=== PATIENT | female | born 1980 | race Caucasian/White ===

== ENCOUNTER 2019-03-27 16:52 | Inpatient (IN) | payer OTHER ==
[~2019-03-27] VITALS: Ht 154.9 cm; Wt 89.9 kg
[~2019-03-27 16:52] MED LIST: IBUP-1223 PO; LABE200T6 PO; LEVO25TA4 PO; OXYC-302 PO
[2019-03-27 17:32] VITALS: BP 167/89
[2019-03-27 17:35] LABS: MICROSCOPIC NOT IND
[2019-03-27 18:03] LABS: BASOPHILS # (AUTO) 0.04 x10^3/uL (0-0.1); BASOPHILS % (AUTO) 1 % (0-1); EOSINOPHILS # (AUTO) 0.16 x10^3/uL (0-0.4); EOSINOPHILS % (AUTO) 2 % (1-7); LYMPHOCYTES # (AUTO) 2.15 x10^3/uL (1-3.4); LYMPHOCYTES % (AUTO) 24 % (22-44); MD NO; MEAN CORPUSCULAR HEMOGLOBIN 30.8 pg (27.0-34.8); MEAN CORPUSCULAR HGB CONC 33.2 g/dL (32.4-35.8); MEAN CORPUSCULAR VOLUME 92.6 fL (80-100); MONOCYTES # (AUTO) 0.65 x10^3/uL (0.2-0.8); MONOCYTES % (AUTO) 7 % (2-9); NEUTROPHILS # (AUTO) 5.83 x10^3/uL (1.8-6.8); NEUTROPHILS % (AUTO) 66 % (42-75); PLATELET COUNT 223 x10^3/uL (130-400); RED BLOOD COUNT 4.45 x10^6/uL (3.82-5.3); RED CELL DISTRIBUTION WIDTH 14.3 % (9.6-15.2)
[2019-03-27 18:07] LABS: ALBUMIN 2.8 g/dL (3.4-5.0); ANION GAP 7 mmol/L (5-15); CALCIUM 9.5 mg/dL (8.5-10.1); CHLORIDE 109 mmol/L (98-107)
[2019-03-27 18:15] LABS: ALANINE AMINOTRANSFERASE 26 U/L (12-78); ALKALINE PHOSPHATASE 123 U/L (45-117); BILIRUBIN,TOTAL 0.4 mg/dL (0.2-1.0); CREATININE 0.97 mg/dL (0.55-1.02); TOTAL PROTEIN 7.4 g/dL (6.4-8.2)
[2019-03-27] MEDS ORDERED: BETAMETHASONE 6 MG/ML, 5ML IM ONE (20:06)
[2019-03-27] MEDS: BETAMETHASONE 6 MG/ML, 5ML IM SCH (20:12)
[2019-03-27] MEDS ORDERED: LABETALOL 200 MG TABLET ONE (22:02)
[2019-03-27] MEDS ORDERED: ASPIRIN 81 MG TABLET CHEW ONE (22:11)
[2019-03-27] MEDS: ASPIRIN 81 MG TABLET CHEW PO SCH (22:15)
[2019-03-27] MEDS: LABETALOL 200 MG TABLET PO SCH (22:16)
[2019-03-28 04:43] LABS: BASOPHILS # (AUTO) 0.01 x10^3/uL (0-0.1); BASOPHILS % (AUTO) 0 % (0-1); EOSINOPHILS % (AUTO) 0 % (1-7); LYMPHOCYTES # (AUTO) 1.33 x10^3/uL (1-3.4); LYMPHOCYTES % (AUTO) 15 % (22-44); MD NO; MEAN CORPUSCULAR HEMOGLOBIN 30.5 pg (27.0-34.8); MEAN CORPUSCULAR VOLUME 92.6 fL (80-100); MEAN PLATELET VOLUME 8.9 fL (7.4-10.4); MONOCYTES # (AUTO) 0.07 x10^3/uL (0.2-0.8); MONOCYTES % (AUTO) 1 % (2-9); NEUTROPHILS # (AUTO) 7.59 x10^3/uL (1.8-6.8); NEUTROPHILS % (AUTO) 84 % (42-75); PLATELET COUNT 216 x10^3/uL (130-400); RED BLOOD COUNT 4.56 x10^6/uL (3.82-5.3); RED CELL DISTRIBUTION WIDTH 14.2 % (9.6-15.2)
[2019-03-28 04:49] LABS: ALANINE AMINOTRANSFERASE 25 U/L (12-78); ALBUMIN 2.7 g/dL (3.4-5.0); ANION GAP 8 mmol/L (5-15); BILIRUBIN, DIRECT 0.1 mg/dL (0.1-0.2); CALCIUM 9.1 mg/dL (8.5-10.1); CHLORIDE 106 mmol/L (98-107); CREATININE 0.96 mg/dL (0.55-1.02)
[2019-03-28 04:51] LABS: ALKALINE PHOSPHATASE 120 U/L (45-117); BILIRUBIN,TOTAL 0.4 mg/dL (0.2-1.0); TOTAL PROTEIN 7.3 g/dL (6.4-8.2)
[2019-03-28] MEDS ORDERED: LABETALOL 200 MG TABLET ONE ×2 (07:39→19:59)
[2019-03-28] MEDS: LABETALOL 200 MG TABLET PO SCH ×2 (07:45→20:04)
[2019-03-28] MEDS: LEVOTHYROXINE 100 MCG TABLET PO SCH (08:31)
[2019-03-28] MEDS ORDERED: ASPIRIN 81 MG TABLET CHEW ONE (19:59)
[2019-03-28] MEDS: BETAMETHASONE 6 MG/ML, 5ML IM SCH (20:04)
[2019-03-28] MEDS: ASPIRIN 81 MG TABLET CHEW PO SCH (20:04)
[2019-03-29] MEDS ORDERED: LABETALOL 200 MG TABLET ONE (07:14)
[2019-03-29] MEDS: LABETALOL 200 MG TABLET PO SCH ×2 (07:20→18:00)
[2019-03-29] MEDS: LEVOTHYROXINE 100 MCG TABLET PO SCH (07:20)
[2019-03-29] MEDS ORDERED: ONDANSETRON 2MG/ML, 2ML IVPush ONE (09:00)
[2019-03-29] MEDS ORDERED: MAGNESIUM SULFATE PMX 2GM/50ML 50 ML IVPB ONE (09:00)
[2019-03-29] MEDS ORDERED: MAGNESIUM SULFATE PMX 4GM/100M 100 ML IVPB ONE ×2 (09:00)
[2019-03-29] MEDS ORDERED: hydrALAzine 20 MG/ML, 1ML IVPush ONE ×4 (09:00)
[2019-03-29] MEDS ORDERED: LABETALOL 5MG/ML 40ML VIAL IVPush ONE (09:00)
[2019-03-29] MEDS ORDERED: LACTATED RINGERS 1,000 ML IVBOLUS ONE (09:00)
[2019-03-29] MEDS ORDERED: CEFAZOLIN PMX 1GM/50ML 50 ML IVPB ONE (09:00)
[2019-03-29] MEDS ORDERED: MAGNESIUM SULFATE PMX 4GM/100M 100 ML ONE (09:05)
[2019-03-29] MEDS ORDERED: hydrALAzine 20 MG/ML, 1ML ONE ×2 (09:06→15:35)
[2019-03-29] MEDS ORDERED: MAGNESIUM SULF. PMX 20GM/500ML 500 ML IV ONE ×2 (09:06→20:10)
[2019-03-29 09:34] LABS: BASOPHILS # (AUTO) 0.04 x10^3/uL (0-0.1); BASOPHILS % (AUTO) 0 % (0-1); EOSINOPHILS # (AUTO) 0.01 x10^3/uL (0-0.4); EOSINOPHILS % (AUTO) 0 % (1-7); LYMPHOCYTES # (AUTO) 1.46 x10^3/uL (1-3.4); LYMPHOCYTES % (AUTO) 13 % (22-44); MD NO; MEAN CORPUSCULAR HEMOGLOBIN 30.5 pg (27.0-34.8); MEAN CORPUSCULAR HGB CONC 33.4 g/dL (32.4-35.8); MEAN CORPUSCULAR VOLUME 91.3 fL (80-100); MEAN PLATELET VOLUME 8.6 fL (7.4-10.4); MONOCYTES % (AUTO) 4 % (2-9); NEUTROPHILS % (AUTO) 83 % (42-75); PLATELET COUNT 228 x10^3/uL (130-400); RED BLOOD COUNT 4.58 x10^6/uL (3.82-5.3); RED CELL DISTRIBUTION WIDTH 14.1 % (9.6-15.2)
[2019-03-29 09:40] LABS: ALANINE AMINOTRANSFERASE 25 U/L (12-78); ALBUMIN 2.9 g/dL (3.4-5.0); ANION GAP 12 mmol/L (5-15); CALCIUM 9.3 mg/dL (8.5-10.1); CHLORIDE 106 mmol/L (98-107); CREATININE 0.98 mg/dL (0.55-1.02)
[2019-03-29 09:42] LABS: ALKALINE PHOSPHATASE 130 U/L (45-117); BILIRUBIN,TOTAL 0.2 mg/dL (0.2-1.0); TOTAL PROTEIN 7.6 g/dL (6.4-8.2)
[2019-03-29] MEDS ORDERED: LACTATED RINGERS 1,000 ML IV SCH (10:00)
[2019-03-29] MEDS: MAGNESIUM SULF. PMX 20GM/500ML 500 ML IV SCH ×2 (10:06→20:19)
[2019-03-29] MEDS ORDERED: ACETAMINOPHEN 325 MG TABLET PO PRN (15:00)
[2019-03-29] MEDS ORDERED: ACETAMINOPHEN 325 MG TABLET ONE (15:02)
[2019-03-29 15:11] VITALS: BP 142/71
[2019-03-29] MEDS ORDERED: NEWBORN KIT ONE (16:27)
[2019-03-29] MEDS ORDERED: METOCLOPRAMIDE 5 MG/ML, 2ML ONE (17:19)
[2019-03-29] MEDS ORDERED: SODIUM CITRATE/CITRIC ACID 30 ML UDC ONE (17:20)
[2019-03-29] MEDS ORDERED: OXYTOCIN 30U/ 0.9% NaCL 500ML 500 ML ONE (17:20)
[2019-03-29] MEDS ORDERED: morphine SULFATE/PF 0.5 MG/ML, 10ML ONE (17:43)
[2019-03-29] MEDS ORDERED: SODIUM CITRATE/CITRIC ACID 30 ML UDC PO ONE (18:00)
[2019-03-29] MEDS ORDERED: METOCLOPRAMIDE 5 MG/ML, 2ML IV ONE (18:00)
[2019-03-29] MEDS ORDERED: CEFAZOLIN 1,000 MG ONE (18:22)
[2019-03-29] MEDS ORDERED: EPHEDRINE 50 MG/ML, 1ML ONE (18:22)
[2019-03-29] MEDS ORDERED: EPINEPHRINE 1 MG/ML, 1ML ONE (18:22)
[2019-03-29] MEDS ORDERED: WATER-INJECTION,STERILE 10 ML IV ONE (18:22)
[2019-03-29] MEDS ORDERED: OXYTOCIN 10 UNITS/ML, 1ML ONE (18:22)
[2019-03-29] MEDS ORDERED: PHENYLEPHRINE 10 MG/ML ONE (18:22)
[2019-03-29] MEDS ORDERED: ONDANSETRON 2MG/ML, 2ML ONE (18:22)
[2019-03-29] MEDS: LACTATED RINGERS 1,000 ML IV SCH ×2 (19:25→20:17)
[2019-03-29] MEDS ORDERED: MISOPROSTOL 200 MCG TABLET PR PRN (19:30)
[2019-03-29] MEDS ORDERED: morphine SULFATE 10 MG/ML, 1ML IVPush PRN (19:30)
[2019-03-29] MEDS ORDERED: CARBOPROST TROMETHAMINE 250 MCG/ML, 1ML IM PRN (19:30)
[2019-03-29] MEDS ORDERED: TRANEXAMIC ACID 100 MG/ML, 10ML IV ONE (19:30)
[2019-03-29] MEDS ORDERED: OXYcodone IR 5MG TABLET PO PRN ×2 (19:30)
[2019-03-29] MEDS ORDERED: ONDANSETRON 2MG/ML, 2ML IV PRN (19:30)
[2019-03-29] MEDS: ASPIRIN 81 MG TABLET CHEW PO SCH (20:00)
[2019-03-29] MEDS: OXYTOCIN 30U/ 0.9% NaCL 500ML 500 ML IV SCH (20:18)
[2019-03-29] MEDS ORDERED: DIPHENHYDRAMINE 50 MG/ML, 1ML IVPush PRN (21:30)
[2019-03-29] MEDS ORDERED: OXYcodone/APAP 5/325MG TABLET PO PRN (21:30)
[2019-03-29] MEDS ORDERED: ONDANSETRON 2MG/ML, 2ML IVPush PRN (21:30)
[2019-03-29] MEDS ORDERED: HYDROmorphone/PF 10 MG/ML, 1ML IVPush PRN (21:30)
[2019-03-29] MEDS ORDERED: NALOXONE 0.4 MG/ML, 1ML IVPush PRN (21:30)
[2019-03-29] MEDS ORDERED: KETOROLAC 30 MG/1 ML ONE (22:50)
[2019-03-29] MEDS: KETOROLAC 30 MG/1 ML IVPush PRN (22:54)
[2019-03-30] VITALS (7 sets, daily range): BP systolic 106–125; BP diastolic 56–76
[2019-03-30] MEDS ORDERED: LABETALOL 200 MG TABLET ONE ×2 (03:14→19:02)
[2019-03-30] MEDS: LACTATED RINGERS 1,000 ML IV SCH ×3 (03:25→15:25)
[2019-03-30 03:41] LABS: BASOPHILS # (AUTO) 0.03 x10^3/uL (0-0.1); BASOPHILS % (AUTO) 0 % (0-1); EOSINOPHILS # (AUTO) 0.18 x10^3/uL (0-0.4); EOSINOPHILS % (AUTO) 1 % (1-7); LYMPHOCYTES # (AUTO) 1.91 x10^3/uL (1-3.4); LYMPHOCYTES % (AUTO) 12 % (22-44); MD NO; MEAN CORPUSCULAR HEMOGLOBIN 30.8 pg (27.0-34.8); MEAN CORPUSCULAR VOLUME 93.5 fL (80-100); MEAN PLATELET VOLUME 8.9 fL (7.4-10.4); MONOCYTES # (AUTO) 1.12 x10^3/uL (0.2-0.8); MONOCYTES % (AUTO) 7 % (2-9); NEUTROPHILS # (AUTO) 13.36 x10^3/uL (1.8-6.8); NEUTROPHILS % (AUTO) 81 % (42-75); PLATELET COUNT 200 x10^3/uL (130-400); RED BLOOD COUNT 3.69 x10^6/uL (3.82-5.3); RED CELL DISTRIBUTION WIDTH 14.2 % (9.6-15.2)
[2019-03-30] MEDS: OXYTOCIN 30U/ 0.9% NaCL 500ML 500 ML IV SCH ×2 (05:25→15:25)
[2019-03-30] MEDS: LEVOTHYROXINE 100 MCG TABLET PO SCH (06:03)
[2019-03-30] MEDS: LABETALOL 200 MG TABLET PO SCH ×2 (06:03→19:04)
[2019-03-30] MEDS ORDERED: MAGNESIUM SULF. PMX 20GM/500ML 500 ML IV ONE (06:56)
[2019-03-30] MEDS: MAGNESIUM SULF. PMX 20GM/500ML 500 ML IV SCH (07:12)
[2019-03-30] MEDS ORDERED: PRENATAL VIT/IRON/FA 1 EACH TABLET ONE (07:47)
[2019-03-30] MEDS ORDERED: DOCUSATE 100 MG CAPSULE ONE (07:47)
[2019-03-30] MEDS: PRENATAL VIT/IRON/FA 1 EACH TABLET PO SCH (07:48)
[2019-03-30] MEDS: DOCUSATE 100 MG CAPSULE PO PRN ×2 (07:48→21:54)
[2019-03-30] MEDS ORDERED: KETOROLAC 30 MG/1 ML ONE (15:59)
[2019-03-30] MEDS ORDERED: OXYcodone/APAP 5/325MG TABLET ONE (16:00)
[2019-03-30] MEDS: KETOROLAC 30 MG/1 ML IVPush PRN ×2 (16:02→21:55)
[2019-03-30] MEDS: OXYcodone/APAP 5/325MG TABLET PO PRN (16:03)
[2019-03-30] MEDS: ASPIRIN 81 MG TABLET CHEW PO SCH (18:00)
[2019-03-30] MEDS: SIMETHICONE 80 MG CHEW TAB PO PRN (21:54)
[2019-03-31] VITALS (7 sets, daily range): BP systolic 139–170; BP diastolic 71–98
[2019-03-31] MEDS: LACTATED RINGERS 1,000 ML IV SCH ×3 (01:25→21:25)
[2019-03-31] MEDS: OXYTOCIN 30U/ 0.9% NaCL 500ML 500 ML IV SCH ×3 (01:25→21:25)
[2019-03-31] MEDS: KETOROLAC 30 MG/1 ML IVPush PRN ×2 (04:17→14:59)
[2019-03-31] MEDS: SIMETHICONE 80 MG CHEW TAB PO PRN ×3 (04:17→22:14)
[2019-03-31] MEDS: OXYcodone/APAP 5/325MG TABLET PO PRN ×3 (04:17→14:59)
[2019-03-31] MEDS: LABETALOL 200 MG TABLET PO SCH ×2 (08:24→18:18)
[2019-03-31] MEDS: DOCUSATE 100 MG CAPSULE PO PRN ×2 (08:24→22:14)
[2019-03-31] MEDS: PRENATAL VIT/IRON/FA 1 EACH TABLET PO SCH (08:24)
[2019-03-31] MEDS: LEVOTHYROXINE 100 MCG TABLET PO SCH (09:24)
[2019-03-31] MEDS: IBUPROFEN 600 MG TABLET PO PRN (22:14)
[2019-04-01] VITALS (7 sets, daily range): BP systolic 119–210; BP diastolic 78–108
[2019-04-01] MEDS: LEVOTHYROXINE 100 MCG TABLET PO SCH (08:26)
[2019-04-01] MEDS: PRENATAL VIT/IRON/FA 1 EACH TABLET PO SCH (08:26)
[2019-04-01] MEDS: LABETALOL 200 MG TABLET PO SCH ×2 (08:26→20:09)
[2019-04-01] MEDS: DOCUSATE 100 MG CAPSULE PO PRN ×2 (08:26→20:16)
[2019-04-01] MEDS: SIMETHICONE 80 MG CHEW TAB PO PRN ×2 (11:36→20:16)
[2019-04-01] MEDS: IBUPROFEN 600 MG TABLET PO PRN ×2 (11:36→20:16)
[2019-04-01] MEDS: OXYcodone/APAP 5/325MG TABLET PO PRN (22:01)
[2019-04-02 05:10] VITALS: BP 138/87
[2019-04-02] MEDS: LEVOTHYROXINE 100 MCG TABLET PO SCH (06:42)
[2019-04-02] MEDS: DOCUSATE 100 MG CAPSULE PO PRN (08:02)
[2019-04-02] MEDS: PRENATAL VIT/IRON/FA 1 EACH TABLET PO SCH (08:02)
[2019-04-02] MEDS: IBUPROFEN 600 MG TABLET PO PRN (08:02)
[2019-04-02] MEDS: LABETALOL 200 MG TABLET PO SCH (08:03)
[2019-04-02 08:04] VITALS: BP 145/87
[2019-04-02] MEDS ORDERED: DOCU-131 PO (17:10)
[2019-04-02] MEDS ORDERED: LABE300T2 PO (17:10)
[2019-04-02] MEDS ORDERED: NIFE20CA PO (17:10)
== END 2019-04-02 17:40 | disposition home or self-care (01) | DRG 788 ==
LOC: LDOP 16:52 → LDIP 20:15 → OBSVTOIN 20:15 → 2NE 20:49 → 2NW 03-30 18:55
PROVIDERS: ADMIT Obstetrics & Gynecology; ATTEND Obstetrics & Gynecology
PROC: 10D00Z1 Extraction of Products of Conception, Low, Open Approach (ICD-10-PCS; principal; 2019-03-29)
DX: O11.4 Pre-existing hypertension with pre-eclampsia, complicating childbirth (principal); O34.211 Maternal care for low transverse scar from previous cesarean delivery; O13.4 Gestational [pregnancy-induced] hypertension without significant proteinuria, complicating childbirth; O99.284 Endocrine, nutritional and metabolic diseases complicating childbirth; E03.9 Hypothyroidism, unspecified; Z3A.35 35 weeks gestation of pregnancy; Z37.0 Single live birth
CPT/HCPCS: 36415; 80053; 81003; 82248; 82570; 82803; 83735; 84156; 84550; 85025; 86850; 86900; G0378; J0171; J0690; J0702; J1885; J2274; J2405; J0360; J2370; J2590; J2765; J3475; J7120